=== PATIENT | female | born 1990 | race Caucasian/White ===

== ENCOUNTER 2023-08-23 14:43 | Emergency (ER) | payer BC ==
[~2023-08-23] VITALS: Ht 157 cm; Wt 73.0 kg
[~2023-08-23 14:43] MED LIST: ACHD5005 PO; CYCL10TA25 PO; PRD20T PO
[2023-08-23] MEDS ORDERED: PANTOPRAZOLE INJECTION 40 MG VIAL IV ONE (15:15)
[2023-08-23] MEDS ORDERED: ANTACID SUSPENSION 30 ML UDC PO ONE (15:15)
[2023-08-23] MEDS ORDERED: LIDOCAINE 2% VISCOUS 15 ML UDC PO ONE (15:15)
--- NOTE | 2023-08-23 15:17 | ED Chest Pain ---
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 She was worried because she has history of cardiomyopathy after and also had PVC ablation done in November of this year. Cardiomyopathy was a couple years ago. She still follows with cardiology. Does report that she had nausea and vomiting as well as diarrhea and vomited a few times yesterday with diarrhea today. Feels a little bit of stomach upset. She was concerned about the history and the pain and wanted to get checked out. Denies breathing problems, sweating or weakness currently. Denies dysuria. Denies fever or chills currently. 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 TECHNICIAN: No Associated Symptoms: abdominal pain; No back pain, No dizziness; nausea/vomiting; No shortness of breath, No weakness Allergies and Home Medications Allergies Coded Allergies: No Known Drug Allergies (Unverified , 08/23/23) Patient Home Medication List Home Medication List Reviewed: Yes Ondansetron (Ondansetron Odt) 4 Mg Tab.rapdis, 4 MG PO Q6H PRN for NAUSEA/VOMITING Prescribed by: DAVID GRIFFITH on 08/23/23 7503 Review of Systems Review of Systems Constitutional: see HPI; No chills, No fever EENTM: No Nose Congestion, No Throat Pain Respiratory: Denies Cough, Denies Shortness of Air Cardiovascular: Chest Pain; Denies Edema Gastrointestinal: Diarrhea, Nausea, Vomiting Genitourinary: No Symptoms Reported Musculoskeletal: no symptoms reported Skin: no symptoms reported Psychiatric/Neurological: No Symptoms Reported Past Wazhzpn-Wyciun-Uhqzpu Hx Patient Social History Tobacco Use?: No Use of E-Cig and/or Vaping dev: No Substance use?: No Alcohol Use?: Yes Alcohol Frequency: Rarely Immunizations Up To Date Third COVID19 Vaccination Date: YES Past Medical History Surgery/Hospitalization HX: CARDIOMYOPATHY, CARDIAL ABLATION, C SECTION, ARMINDA, ACL, T&A Surgeries: Yes (Ventricular fibrillation) Respiratory: No Cardiac: Yes Cardiomyopathy Neurological: No Last Menstrual Period: Jul 25, 2023 Family Medical History Reviewed Nursing Family Hx No Pertinent Family Hx Physical Exam Vital Signs Vital Signs - First Documented 08/23/23 14:47 Temp 36.7 Pulse 62 Resp 20 B/P (MAP) 140/88 (105) Pulse Ox 98 O2 Delivery Room Air Capillary Refill : Less Than 3 Seconds Height, Weight, BMI Height: '" Weight: lbs. oz. kg; 29.00 BMI Method: General Appearance: No Apparent Distress, WD/WN HEENT: PERRL/EOMI, Pharynx Normal Neck: Non Tender, Supple Respiratory: Lungs Clear, Normal Breath Sounds Cardiovascular: Regular Rate, Rhythm, No Murmur Gastrointestinal: Non Tender, Soft Extremity: Normal Range of Motion, Non Tender Neurologic/Psychiatric: Alert, Oriented x3 Skin: Normal Color, Warm/Dry Progress/Results/Core Measures Results/Orders Lab Results Laboratory Tests Test 08/23/23 15:55 Range/Units White Blood Count 9.1 4.3-11.0 10^3/uL Red Blood Count 4.19 3.80-5.11 10^6/uL Hemoglobin 12.7 11.5-16.0 g/dL Hematocrit 38 35-52 % Mean Corpuscular Volume 90 80-99 fL Mean Corpuscular Hemoglobin 30 25-34 pg Mean Corpuscular Hemoglobin Concent 34 32-36 g/dL Red Cell Distribution Width 12.0 10.0-14.5 % Platelet Count 229 130-400 10^3/uL Mean Platelet Volume 9.8 9.0-12.2 fL Immature Granulocyte % (Auto) 0 % Neutrophils (%) (Auto) 76 H 42-75 % Lymphocytes (%) (Auto) 17 12-44 % Monocytes (%) (Auto) 5 0-12 % Eosinophils (%) (Auto) 1 0-10 % Basophils (%) (Auto) 0 0-10 % Neutrophils # (Auto) 6.9 1.8-7.8 10^3/uL Lymphocytes # (Auto) 1.6 1.0-4.0 10^3/uL Monocytes # (Auto) 0.5 0.0-1.0 10^3/uL Eosinophils # (Auto) 0.1 0.0-0.3 10^3/uL Basophils # (Auto) 0.0 0.0-0.1 10^3/uL Immature Granulocyte # (Auto) 0.0 0.0-0.1 10^3/uL Sodium Level 138 135-145 MMOL/L Potassium Level 3.5 L 3.6-5.0 MMOL/L Chloride Level 108 H 98-107 MMOL/L Carbon Dioxide Level 22 21-32 MMOL/L Anion Gap 8 5-14 MMOL/L Blood Urea Nitrogen 9 7-18 MG/DL Creatinine 0.79 0.60-1.30 MG/DL Estimat Glomerular Filtration Rate 101 BUN/Creatinine Ratio 11 Glucose Level 120 H 70-105 MG/DL Calcium Level 8.6 8.5-10.1 MG/DL Corrected Calcium 8.5 8.5-10.1 MG/DL Total Bilirubin 0.3 0.1-1.0 MG/DL Aspartate Amino Transf (AST/SGOT) 42 H 5-34 U/L Alanine Aminotransferase (ALT/SGPT) 29 0-55 U/L Alkaline Phosphatase 68 40-136 U/L Troponin I < 0.028 <0.028 NG/ML C-Reactive Protein High Sensitivity 0.13 0.00-0.50 MG/DL Total Protein 6.9 6.4-8.2 GM/DL Albumin 4.1 3.2-4.5 GM/DL Lipase 28 8-78 U/L My Orders Orders - DAVID GRIFFITH MD Ekg Tracing (08/23/23 14:46) Cbc And Automated Diff (08/23/23 15:15) Comprehensive Metabolic Panel (08/23/23 15:15) Hs C Reactive Protein (08/23/23 15:15) Lipase (08/23/23 15:15) Troponin I [place] (08/23/23 15:15) Chest 1 View, Ap/Pa Only (08/23/23 15:15) Lidocaine 2% Viscous 15 Ml (Xylocaine Vi (08/23/23 15:15) Antacid Suspension (Antacid Suspension (08/23/23 15:15) Pantoprazole Injection (Pantoprazole Inj (08/23/23 15:15) Medications Given in ED Current Medications Medications Dose Ordered Sig/Breann Route Start Time Stop Time Status Last Admin Dose Admin Al Hydrox/Mg Hydrox/Simethicone 30 ml ONCE ONCE PO 08/23/23 15:15 08/23/23 15:18 DC 08/23/23 15:29 30 ML Lidocaine HCl 15 ml ONCE ONCE PO 08/23/23 15:15 08/23/23 15:18 DC 08/23/23 15:29 15 ML Pantoprazole 40 mg ONCE ONCE IV 08/23/23 15:15 08/23/23 15:18 DC 08/23/23 15:29 40 MG Vital Signs/I&O 08/23/23 08/23/23 14:47 17:18 Temp 36.7 36.7 Pulse 62 62 Resp 20 20 B/P (MAP) 140/88 (105) 121/80 Pulse Ox 98 98 O2 Delivery Room Air Room Air Blood Pressure Mean: 105 Progress Progress Note : Progress Note Seen and evaluated. IV, blood including CBC CMP, CRP and troponin ordered. We will get chest x-ray and EKG. GI cocktail ordered as well as Protonix 40 mg IV. Monitor patient. Differential diagnosis includes cardiac event, GI upset secondary to viral illness, troponin mobility, dehydration 1711: CBC grossly normal. CMP is grossly normal with slight decrease of potassium 3.5. LFTs grossly normal. Troponin is negative and CRP is negative. Patient is better after GI cocktail. I do believe this is related to reflux and possible esophageal spasms as labs are negative. Chest x-ray reviewed by me is normal without cardiomegaly on my interpretation. Radiology report agrees. All of the findings were discussed with the patient. We did discuss repeat troponin. Given that this is likely GI related and less cardiac related, I do believe that it would be safe to discharge her home. She feels comfortable with that and would prefer that. I will send out prescription for ondansetron. We did discuss OTC medicines. Discharged home with return precautions. Patient verbalized understanding instructions and agreement with plan. Initial ECG Impression Date: Aug 23, 2023 Initial ECG Impression Time: 14:50 Initial ECG Rate: 57 Initial ECG Rhythm: Normal Sinus Initial ECG Impression: Sinus Bradycardia Comment Sinus bradycardia with normal axis. No evidence of ST elevation OK. Normal intervals. Interpreted by me. Diagnostic Imaging Diagonstic Imaging: Xray Plain Films/CT/US/NM/MRI: chest Comments [facility], [place] NAME: ELVIRA GONSALEZ [facility] REC#: [id number] PT STATUS: REG ER : 1990 PHYSICIAN: DAVID GRIFFITH MD ADMIT DATE: 08/23/23/ER Signed Date of Exam:08/23/23 CHEST 1 VIEW, AP/PA ONLY INDICATION: Chest pain. COMPARISON: None available. FINDINGS: The lungs appear clear without focal airspace opacities or consolidation. There are no findings of an effusion. There is no evidence of a pneumothorax. Heart size and mediastinal contours appear appropriate. Pulmonary vascularity appears within normal limits. There is no acute or suspicious osseous abnormality demonstrated. IMPRESSION: No radiographic evidence of an acute cardiopulmonary process. Dictated by: Dictated on workstation # [id number] Dict: 08/23/23 155 Trans: 08/23/231552 [facility] [id number] Interpreted by: AMEE WERNER MD Electronically signed by: AMEE WERNER MD 08/23/231552 Departure Impression Primary Impression: Chest pain Qualified Codes: R07.9 - Chest pain, unspecified Additional Impression: Nausea vomiting and diarrhea Disposition: 01 HOME, SELF-CARE Condition: Improved Departure-Patient Inst. Decision time for Depature: 17:11 Referrals: NO,LOCAL PHYSICIAN (PCP) Primary Care Physician Patient Instructions: Diarrhea, Adult ED, Nausea and Vomiting, Adult ED, Chest Pain (DC) Add. Discharge Instructions: All discharge instructions reviewed with patient and/or family. Voiced under standing. Take medications as previously prescribed. You may take [id number] Pepcid or the generic famotidine 20 mg once or twice daily as needed for stomach upset. Clear a light diet for the next 24 hours and then advance as tolerated. Drink plenty of fluids by taking small sips frequently. 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 Return for worse pain, fever, vomiting, weakness, breathing problems or other concerns as needed. Scripts Ondansetron (Ondansetron Odt) 4 Mg Tab.rapdis 4 MG PO Q6H PRN for NAUSEA/VOMITING, #12 TAB 0 Refills Prov: DAVID GRIFFITH MD 08/23/23 Copy Copies To 1: JORDYN TOTH TIMOTHY D MD Aug 23, 2023 15:17
--- NOTE | 2023-08-23 15:54 | Diagnostic Imaging Report ---
INDICATION: Chest pain. COMPARISON: None available. FINDINGS: The lungs appear clear without focal airspace opacities or consolidation. There are no findings of an effusion. There is no evidence of a pneumothorax. Heart size and mediastinal contours appear appropriate. Pulmonary vascularity appears within normal limits. There is no acute or suspicious osseous abnormality demonstrated. IMPRESSION: No radiographic evidence of an acute cardiopulmonary process. Dictated by: Dictated on workstation # [id number]
[2023-08-23 16:03] LABS: BASOPHILS % (AUTO) 0 % (0-10); EOSINOPHILS # (AUTO) 0.1 10^3/uL (0.0-0.3); EOSINOPHILS % (AUTO) 1 % (0-10); HEMATOCRIT 38 % (35-52); HEMOGLOBIN 12.7 g/dL (11.5-16.0); LYMPHOCYTES # (AUTO) 1.6 10^3/uL (1.0-4.0); LYMPHOCYTES % (AUTO) 17 % (12-44); MEAN CORPUSCULAR HEMOGLOBIN 30 pg (25-34); MEAN CORPUSCULAR HGB CONC 34 g/dL (32-36); MEAN CORPUSCULAR VOLUME 90 fL (80-99); MEAN PLATELET VOLUME 9.8 fL (9.0-12.2); MONOCYTES # (AUTO) 0.5 10^3/uL (0.0-1.0); MONOCYTES % (AUTO) 5 % (0-12); NEUTROPHILS # (AUTO) 6.9 10^3/uL (1.8-7.8); NEUTROPHILS % (AUTO) 76 % (42-75); PLATELET COUNT 229 10^3/uL (130-400); WHITE BLOOD COUNT 9.1 10^3/uL (4.3-11.0)
[2023-08-23 16:11] LABS: ALBUMIN 4.1 GM/DL (3.2-4.5); CHLORIDE 108 MMOL/L (98-107); POTASSIUM 3.5 MMOL/L (3.6-5.0); SODIUM 138 MMOL/L (135-145)
[2023-08-23 16:12] LABS: CALCIUM 8.6 MG/DL (8.5-10.1)
[2023-08-23 16:13] LABS: GLUCOSE 120 MG/DL (70-105)
[2023-08-23 16:14] LABS: TOTAL PROTEIN 6.9 GM/DL (6.4-8.2)
[2023-08-23 16:15] LABS: BILIRUBIN,TOTAL 0.3 MG/DL (0.1-1.0); CARBON DIOXIDE 22 MMOL/L (21-32)
[2023-08-23 16:17] LABS: ALKALINE PHOSPHATASE 68 U/L (40-136); CREATININE SERUM 0.79 MG/DL (0.60-1.30); GFR ESTIMATED 101
[2023-08-23 16:18] LABS: BUN/CREATININE RATIO 11
[2023-08-23 16:20] LABS: ALANINE AMINOTRANSFERASE 29 U/L (0-55); LIPASE 28 U/L (8-78)
[2023-08-23] MEDS ORDERED: ONDA4TAB11 PO (17:13)
[2023-08-23 17:18] VITALS: BP 121/80
== END 2023-08-23 17:17 | disposition home or self-care (01) ==
LOC: EDUNIT# 14:43 → ER 14:46
DX: R07.9 Chest pain, unspecified (principal); R11.2 Nausea with vomiting, unspecified; R19.7 Diarrhea, unspecified; R00.1 Bradycardia, unspecified
CPT/HCPCS: 36415; 71045; 80053; 83690; 84484; 85025; 86141; 93005; 96374